=== PATIENT | female | born 1975 | race Caucasian/White ===

== ENCOUNTER 2016-10-09 03:59 | Inpatient (IN) | payer SELFPAY ==
[2016-10-09] MEDS ORDERED: NO HOME MEDICATION XX (04:10)
[2016-10-09 04:48] LABS: BASO % 0.4 % (0-2); EOS % 4.7 % (0-7); EOSINOPHIL ABSOLUTE COUNT 0.5 tho/cmm (0.0-0.7); HCT-HEMATOCRIT 28.7 % (34.0-49.0); HGB-HEMOGLOBIN 9.2 gm/dl (12.0-15.5); IMMATURE GRANULOCYTES ABSOLUTE 0.02 tho/cmm (0-0.03); IMMATURE GRANULOCYTES PERCENT 0.2 % (0-0.3); LYMPH % 22.8 % (20-45); LYMPH ABSOLUTE COUNT 2.3 tho/cmm (0.8-4.5); MCH (MEAN CORPUSCULAR HGB) 23.8 pg (28.0-32.0); MCHC MEAN CORPUSCULAR HGB CONC 32.1 % (32.0-36.0); MCV (MEAN CELL VOLUME) 74.4 fl (82.0-96.0); MEAN PLATELET VOLUME 9.4 cmc (9.4-12.4); MONO % 6.6 % (0-12); MONOCYTE ABSOLUTE COUNT 0.7 tho/cmm (0.0-1.2); NEUTROPHIL ABSOLUTE COUNT 6.6 tho/cmm (1.6-8.0); NEUTROPHIL-AUTOMATED 6.6 tho/cmm (1.6-8.0); NEUTROPHILS % 65.3 % (40-80); PLATELET COUNT 444 tho/cmm (150-450); RED BLOOD COUNT 3.86 mil/cmm (4.00-5.20); RED CELL DISTRIBUTION WIDTH 22.7 % (12.4-16.4); WHITE BLOOD COUNT 10.1 tho/cmm (4.0-10.0)
[2016-10-09 04:56] LABS: PREGNANCY-SERUM NEGATIVE (NEGATIVE)
[2016-10-09 05:11] LABS: URINE BILIRUBIN NEGATIVE (NEG); URINE BLOOD LARGE (NEG); URINE GLUCOSE (UA) MODERATE (NEG); URINE KETONE NEGATIVE (NEG); URINE LEUKOCYTE ESTERASE NEGATIVE (NEG); URINE NITRITE NEGATIVE (NEG); URINE PROTEIN LARGE (NEG)
[2016-10-09 05:22] LABS: URINE APPEARANCE HAZY; URINE COLOR YELLOW
[2016-10-09 05:24] LABS: URINE BACTERIA 2+; URINE WBC RARE /[HPF] (0-5)
[2016-10-09 05:27] LABS: ALB/GLOB RATIO 0.2 (0.8-2.0); ALBUMIN 1.2 g/dl (3.5-5.0); ALKALINE PHOSPHATASE 111 U/L (33-138); ALT/SGPT 18 U/L (12-78); AST/SGOT 23 U/L (10-40); BILIRUBIN,TOTAL 0.1 mg/dl (0-1.5); BLOOD UREA NITROGEN 20 mg/dl (6-24); CALCIUM 7.9 mg/dl (8.5-10.5); CARBON DIOXIDE-VENOUS 19 mmol/L (22-32); CHLORIDE 111 mmol/l (96-110); CREATININE 1.83 mg/dl (0.50-1.10); GLUCOSE 121 mg/dL (70-110); MAGNESIUM 2.2 mg/dl (1.8-2.6); SODIUM 143 mmol/L (135-145); eGFR VALUE FOR BLACK 39 mL/Min
[2016-10-09 05:57] LABS: ANION GAP 16 mmol/L (0-20); POTASSIUM 2.5 mmol/L (3.7-5.1)
[2016-10-09 10:52] LABS: PROTHROMBIN TIME 11.2 SECONDS (9.0-13.6)
[2016-10-09 11:02] LABS: IRON 16 ug/dl (37-170); IRON BINDING CAPACITY 119 ug/dl (250-450)
[2016-10-09 11:06] LABS: FERRITIN 24 ng/ml (8-250); MAGNESIUM 2.2 mg/dl (1.8-2.6); PHOSPHOROUS 4.7 mg/dl (2.5-4.9)
[2016-10-09 12:33] LABS: PROCALCITONIN 0.18 ng/ml (0.05-0.09)
[2016-10-09 12:55] LABS: ESR-ERYTHROCYTE SED RATE >140 mm/hr (0-20)
[2016-10-10 06:20] LABS: BASO % 0.4 % (0-2); EOS % 6.3 % (0-7); EOSINOPHIL ABSOLUTE COUNT 0.5 tho/cmm (0.0-0.7); HGB-HEMOGLOBIN 7.7 gm/dl (12.0-15.5); IMMATURE GRANULOCYTES ABSOLUTE 0.01 tho/cmm (0-0.03); IMMATURE GRANULOCYTES PERCENT 0.1 % (0-0.3); LYMPH % 35.2 % (20-45); LYMPH ABSOLUTE COUNT 2.9 tho/cmm (0.8-4.5); MCH (MEAN CORPUSCULAR HGB) 23.2 pg (28.0-32.0); MCHC MEAN CORPUSCULAR HGB CONC 30.8 % (32.0-36.0); MCV (MEAN CELL VOLUME) 75.3 fl (82.0-96.0); MEAN PLATELET VOLUME 9.3 cmc (9.4-12.4); MONO % 6.5 % (0-12); MONOCYTE ABSOLUTE COUNT 0.5 tho/cmm (0.0-1.2); NEUTROPHIL ABSOLUTE COUNT 4.3 tho/cmm (1.6-8.0); NEUTROPHIL-AUTOMATED 4.3 tho/cmm (1.6-8.0); NEUTROPHILS % 51.5 % (40-80); PLATELET COUNT 406 tho/cmm (150-450); RED BLOOD COUNT 3.32 mil/cmm (4.00-5.20); RED CELL DISTRIBUTION WIDTH 23.1 % (12.4-16.4); WHITE BLOOD COUNT 8.3 tho/cmm (4.0-10.0)
[2016-10-10 06:42] LABS: ALB/GLOB RATIO 0.2 (0.8-2.0); ALBUMIN 0.9 g/dl (3.5-5.0); ALKALINE PHOSPHATASE 85 U/L (33-138); ALT/SGPT 13 U/L (12-78); ANION GAP 16 mmol/L (0-20); AST/SGOT 22 U/L (10-40); BLOOD UREA NITROGEN 21 mg/dl (6-24); CALCIUM 7.7 mg/dl (8.5-10.5); CARBON DIOXIDE-VENOUS 18 mmol/L (22-32); CHLORIDE 117 mmol/l (96-110); CHOLESTEROL 217 mg/dl (120-200); CREATININE 2.02 mg/dl (0.50-1.10); GLUCOSE 90 mg/dL (70-110); HDL CHOLESTEROL 68 mg/dl (40-60); LDL CHOLESTEROL 126 mg/dl (0-99); POTASSIUM 3.9 mmol/L (3.7-5.1); SODIUM 147 mmol/L (135-145); TRIGLYCERIDES 117 mg/dl (<149); VLDL 23 mg/dl (0-30); eGFR VALUE FOR BLACK 34 mL/Min
[2016-10-10 06:49] LABS: BILIRUBIN,TOTAL <0.1 mg/dl (0-1.5)
[2016-10-10 16:24] LABS: URINE PRT/CR RATIO 21.79 Ratio (0.0-0.20); URINE TOTAL PROTEIN-RANDOM 1024.4 mg/dl (<11.8)
[2016-10-10 18:19] LABS: BODY FLUID APPEARANCE HAZY (CLEAR); BODY FLUID COLOR YELLOW (COLORLESS); BODY FLUID TYPE RIGHT PLEURAL; BODY FLUID VOLUME 1700 ml
[2016-10-10 18:34] LABS: BODY FLUID RBC COUNT <1000 cmm (0); BODY FLUID WBC COUNT 366 cmm
[2016-10-10 18:51] LABS: BODY FLUID LYMPHOCYTES 63 %; BODY FLUID MACROPHAGES 20 %; BODY FLUID NEUTROPHILS 17 %
[2016-10-11 03:37] LABS: BASO % 0.3 % (0-2); EOS % 4.3 % (0-7); EOSINOPHIL ABSOLUTE COUNT 0.5 tho/cmm (0.0-0.7); HCT-HEMATOCRIT 24.1 % (34.0-49.0); HGB-HEMOGLOBIN 7.5 gm/dl (12.0-15.5); IMMATURE GRANULOCYTES ABSOLUTE 0.02 tho/cmm (0-0.03); IMMATURE GRANULOCYTES PERCENT 0.2 % (0-0.3); LYMPH % 24.5 % (20-45); LYMPH ABSOLUTE COUNT 2.6 tho/cmm (0.8-4.5); MCH (MEAN CORPUSCULAR HGB) 23.4 pg (28.0-32.0); MCHC MEAN CORPUSCULAR HGB CONC 31.1 % (32.0-36.0); MCV (MEAN CELL VOLUME) 75.1 fl (82.0-96.0); MEAN PLATELET VOLUME 9.6 cmc (9.4-12.4); MONO % 4.4 % (0-12); MONOCYTE ABSOLUTE COUNT 0.5 tho/cmm (0.0-1.2); NEUTROPHILS % 66.3 % (40-80); PLATELET COUNT 433 tho/cmm (150-450); RED BLOOD COUNT 3.21 mil/cmm (4.00-5.20); RED CELL DISTRIBUTION WIDTH 23.2 % (12.4-16.4); WHITE BLOOD COUNT 10.6 tho/cmm (4.0-10.0)
[2016-10-11 03:40] LABS: ANION GAP 16 mmol/L (0-20); BLOOD UREA NITROGEN 20 mg/dl (6-24); CALCIUM 7.8 mg/dl (8.5-10.5); CARBON DIOXIDE-VENOUS 16 mmol/L (22-32); CHLORIDE 118 mmol/l (96-110); FERRITIN 23 ng/ml (8-250); GLUCOSE 92 mg/dL (70-110); POTASSIUM 3.6 mmol/L (3.7-5.1); SODIUM 146 mmol/L (135-145); eGFR VALUE FOR BLACK 37 mL/Min
[2016-10-11 04:03] LABS: IRON 26 ug/dl (37-170); IRON BINDING CAPACITY 124 ug/dl (250-450)
[2016-10-12 05:37] LABS: ALBUMIN 1.3 g/dl (3.5-5.0); ANION GAP 15 mmol/L (0-20); BLOOD UREA NITROGEN 19 mg/dl (6-24); CALCIUM 7.8 mg/dl (8.5-10.5); CARBON DIOXIDE-VENOUS 17 mmol/L (22-32); CHLORIDE 119 mmol/l (96-110); CREATININE 1.88 mg/dl (0.50-1.10); GLUCOSE 100 mg/dL (70-110); MAGNESIUM 1.8 mg/dl (1.8-2.6); PHOSPHOROUS 4.2 mg/dl (2.5-4.9); POTASSIUM 3.7 mmol/L (3.7-5.1); SODIUM 147 mmol/L (135-145); eGFR VALUE FOR BLACK 37 mL/Min
[2016-10-12 11:13] LABS: BASO % 0.5 % (0-2); EOS % 6.8 % (0-7); EOSINOPHIL ABSOLUTE COUNT 0.6 tho/cmm (0.0-0.7); IMMATURE GRANULOCYTES ABSOLUTE 0.01 tho/cmm (0-0.03); IMMATURE GRANULOCYTES PERCENT 0.1 % (0-0.3); LYMPH % 31.2 % (20-45); LYMPH ABSOLUTE COUNT 2.6 tho/cmm (0.8-4.5); MCH (MEAN CORPUSCULAR HGB) 23.5 pg (28.0-32.0); MCV (MEAN CELL VOLUME) 75.8 fl (82.0-96.0); MEAN PLATELET VOLUME 9.3 cmc (9.4-12.4); MONOCYTE ABSOLUTE COUNT 0.3 tho/cmm (0.0-1.2); NEUTROPHIL ABSOLUTE COUNT 4.8 tho/cmm (1.6-8.0); NEUTROPHIL-AUTOMATED 4.8 tho/cmm (1.6-8.0); NEUTROPHILS % 57.4 % (40-80); PLATELET COUNT 411 tho/cmm (150-450); RED BLOOD COUNT 2.98 mil/cmm (4.00-5.20); RED CELL DISTRIBUTION WIDTH 23.1 % (12.4-16.4); WHITE BLOOD COUNT 8.4 tho/cmm (4.0-10.0)
[2016-10-12 11:14] LABS: HCT-HEMATOCRIT 22.6 % (34.0-49.0)
--- NOTE | 2016-10-12 12:17 | NUR ---
PATIENT NOTED TO BE VERY PALE/FLUSHED. SHORT OF BREATH AND COMPLAINING OF NAUSEA/VOMITING. ZOFRAN GIVEN. CLUBBING NOTED TO NAILS. PATIENT RECEIVING IRON AND PROCRIT IV AT THIS TIME. WILL CONTINUE TO MONITOR.
[2016-10-13 05:03] LABS: HGB-HEMOGLOBIN 7.3 gm/dl (12.0-15.5); IMMATURE GRANULOCYTES ABSOLUTE 0.02 tho/cmm (0-0.03); IMMATURE GRANULOCYTES PERCENT 0.3 % (0-0.3); LYMPH % 14.4 % (20-45); MCH (MEAN CORPUSCULAR HGB) 23.9 pg (28.0-32.0); MCV (MEAN CELL VOLUME) 75.8 fl (82.0-96.0); MEAN PLATELET VOLUME 9.8 cmc (9.4-12.4); MONO % 0.6 % (0-12); NEUTROPHIL ABSOLUTE COUNT 5.7 tho/cmm (1.6-8.0); NEUTROPHIL-AUTOMATED 5.7 tho/cmm (1.6-8.0); NEUTROPHILS % 84.7 % (40-80); PLATELET COUNT 407 tho/cmm (150-450); RED BLOOD COUNT 3.06 mil/cmm (4.00-5.20); RED CELL DISTRIBUTION WIDTH 23.6 % (12.4-16.4); WHITE BLOOD COUNT 6.7 tho/cmm (4.0-10.0)
[2016-10-13 05:11] LABS: HCT-HEMATOCRIT 23.2 % (34.0-49.0); MCHC MEAN CORPUSCULAR HGB CONC 31.5 % (32.0-36.0)
[2016-10-13 05:14] LABS: ALBUMIN 1.7 g/dl (3.5-5.0); BLOOD UREA NITROGEN 19 mg/dl (6-24); CALCIUM 7.7 mg/dl (8.5-10.5); CARBON DIOXIDE-VENOUS 17 mmol/L (22-32); CHLORIDE 115 mmol/l (96-110); CREATININE 1.94 mg/dl (0.50-1.10); PHOSPHOROUS 3.8 mg/dl (2.5-4.9); SODIUM 142 mmol/L (135-145); eGFR VALUE FOR BLACK 36 mL/Min
[2016-10-13 05:18] LABS: ANION GAP 15 mmol/L (0-20); GLUCOSE 151 mg/dL (70-110)
[2016-10-13 05:19] LABS: MAGNESIUM 1.7 mg/dl (1.8-2.6); POTASSIUM 5.1 mmol/L (3.7-5.1)
[2016-10-14 05:30] LABS: BASO % 0.1 % (0-2); HGB-HEMOGLOBIN 6.6 gm/dl (12.0-15.5); IMMATURE GRANULOCYTES ABSOLUTE 0.11 tho/cmm (0-0.03); IMMATURE GRANULOCYTES PERCENT 0.8 % (0-0.3); LYMPH % 11.4 % (20-45); LYMPH ABSOLUTE COUNT 1.6 tho/cmm (0.8-4.5); MCH (MEAN CORPUSCULAR HGB) 23.7 pg (28.0-32.0); MCV (MEAN CELL VOLUME) 76.3 fl (82.0-96.0); MEAN PLATELET VOLUME 10.2 cmc (9.4-12.4); MONO % 1.3 % (0-12); MONOCYTE ABSOLUTE COUNT 0.2 tho/cmm (0.0-1.2); NEUTROPHILS % 86.4 % (40-80); PLATELET COUNT 372 tho/cmm (150-450); RED BLOOD COUNT 2.78 mil/cmm (4.00-5.20); RED CELL DISTRIBUTION WIDTH 23.7 % (12.4-16.4)
[2016-10-14 05:42] LABS: HCT-HEMATOCRIT 21.2 % (34.0-49.0); MCHC MEAN CORPUSCULAR HGB CONC 31.1 % (32.0-36.0); WHITE BLOOD COUNT 13.9 tho/cmm (4.0-10.0)
[2016-10-14 06:03] LABS: ALBUMIN 2.2 g/dl (3.5-5.0); ANION GAP 15 mmol/L (0-20); BLOOD UREA NITROGEN 23 mg/dl (6-24); CALCIUM 7.4 mg/dl (8.5-10.5); CARBON DIOXIDE-VENOUS 20 mmol/L (22-32); CHLORIDE 113 mmol/l (96-110); GLUCOSE 148 mg/dL (70-110); SODIUM 142 mmol/L (135-145)
[2016-10-14 06:04] LABS: CREATININE 1.85 mg/dl (0.50-1.10); PHOSPHOROUS 4.2 mg/dl (2.5-4.9); eGFR VALUE FOR BLACK 38 mL/Min
[2016-10-14 06:18] LABS: POTASSIUM 5.6 mmol/L (3.7-5.1)
[2016-10-15 05:33] LABS: ALBUMIN 2.4 g/dl (3.5-5.0); ANION GAP 14 mmol/L (0-20); BLOOD UREA NITROGEN 30 mg/dl (6-24); CARBON DIOXIDE-VENOUS 27 mmol/L (22-32); CHLORIDE 106 mmol/l (96-110); CREATININE 1.77 mg/dl (0.50-1.10); GLUCOSE 176 mg/dL (70-110); MAGNESIUM 1.6 mg/dl (1.8-2.6); PHOSPHOROUS 2.1 mg/dl (2.5-4.9); SODIUM 144 mmol/L (135-145); eGFR VALUE FOR BLACK 40 mL/Min
[2016-10-15 05:38] LABS: POTASSIUM 2.6 mmol/L (3.7-5.1)
[2016-10-15 05:51] LABS: HGB-HEMOGLOBIN 7.3 gm/dl (12.0-15.5); MCH (MEAN CORPUSCULAR HGB) 23.9 pg (28.0-32.0); MCV (MEAN CELL VOLUME) 76.1 fl (82.0-96.0); MEAN PLATELET VOLUME 10.4 cmc (9.4-12.4); NEUTROPHIL-AUTOMATED 12.4 tho/cmm (1.6-8.0); PLATELET COUNT 456 tho/cmm (150-450); RED BLOOD COUNT 3.05 mil/cmm (4.00-5.20); WHITE BLOOD COUNT 14.9 tho/cmm (4.0-10.0)
[2016-10-15 05:58] LABS: BASO % 0.1 % (0-2); HCT-HEMATOCRIT 23.2 % (34.0-49.0); IMMATURE GRANULOCYTES ABSOLUTE 0.17 tho/cmm (0-0.03); IMMATURE GRANULOCYTES PERCENT 1.1 % (0-0.3); LYMPH % 13.4 % (20-45); MCHC MEAN CORPUSCULAR HGB CONC 31.5 % (32.0-36.0); MONO % 2.2 % (0-12); MONOCYTE ABSOLUTE COUNT 0.3 tho/cmm (0.0-1.2); NEUTROPHIL ABSOLUTE COUNT 12.4 tho/cmm (1.6-8.0); NEUTROPHILS % 83.2 % (40-80)
[2016-10-16 03:21] LABS: ALBUMIN 2.1 g/dl (3.5-5.0); ANION GAP 13 mmol/L (0-20); BLOOD UREA NITROGEN 22 mg/dl (6-24); CARBON DIOXIDE-VENOUS 25 mmol/L (22-32); CHLORIDE 108 mmol/l (96-110); CREATININE 1.11 mg/dl (0.50-1.10); GLUCOSE 174 mg/dL (70-110); MAGNESIUM 1.8 mg/dl (1.8-2.6); PHOSPHOROUS 1.3 mg/dl (2.5-4.9); POTASSIUM 3.5 mmol/L (3.7-5.1); SODIUM 142 mmol/L (135-145); eGFR VALUE FOR BLACK 70 mL/Min
[2016-10-16 03:26] LABS: CALCIUM 6.4 mg/dl (8.5-10.5)
[2016-10-17 06:04] LABS: HGB-HEMOGLOBIN 8.6 gm/dl (12.0-15.5); MCH (MEAN CORPUSCULAR HGB) 24.2 pg (28.0-32.0); MCHC MEAN CORPUSCULAR HGB CONC 30.7 % (32.0-36.0); MCV (MEAN CELL VOLUME) 78.9 fl (82.0-96.0); NEUTROPHIL-AUTOMATED 7.2 tho/cmm (1.6-8.0); PLATELET COUNT 448 tho/cmm (150-450); RED BLOOD COUNT 3.55 mil/cmm (4.00-5.20); RED CELL DISTRIBUTION WIDTH 24.6 % (12.4-16.4); WHITE BLOOD COUNT 12.8 tho/cmm (4.0-10.0)
[2016-10-17 06:14] LABS: ALBUMIN 2.4 g/dl (3.5-5.0); ANION GAP 15 mmol/L (0-20); BASO % 0.2 % (0-2); BLOOD UREA NITROGEN 19 mg/dl (6-24); CALCIUM 6.7 mg/dl (8.5-10.5); CARBON DIOXIDE-VENOUS 27 mmol/L (22-32); CHLORIDE 100 mmol/l (96-110); CREATININE 1.08 mg/dl (0.50-1.10); EOS % 0.7 % (0-7); EOSINOPHIL ABSOLUTE COUNT 0.1 tho/cmm (0.0-0.7); GLUCOSE 154 mg/dL (70-110); IMMATURE GRANULOCYTES ABSOLUTE 0.23 tho/cmm (0-0.03); IMMATURE GRANULOCYTES PERCENT 1.8 % (0-0.3); LYMPH % 35.7 % (20-45); LYMPH ABSOLUTE COUNT 4.6 tho/cmm (0.8-4.5); MAGNESIUM 1.4 mg/dl (1.8-2.6); MONO % 5.5 % (0-12); MONOCYTE ABSOLUTE COUNT 0.7 tho/cmm (0.0-1.2); NEUTROPHIL ABSOLUTE COUNT 7.2 tho/cmm (1.6-8.0); NEUTROPHILS % 56.1 % (40-80); PHOSPHOROUS 1.9 mg/dl (2.5-4.9); SODIUM 138 mmol/L (135-145); eGFR VALUE FOR BLACK 73 mL/Min
[2016-10-17 06:20] LABS: POTASSIUM 3.8 mmol/L (3.7-5.1)
[2016-10-17 21:34] LABS: URINE PRT/CR RATIO 7.99 Ratio (0.0-0.20); URINE TOTAL PROTEIN-RANDOM 175.8 mg/dl (<11.8)
[2016-10-18 06:23] LABS: ALBUMIN 2.7 g/dl (3.5-5.0); ANION GAP 15 mmol/L (0-20); BLOOD UREA NITROGEN 23 mg/dl (6-24); CALCIUM 7.2 mg/dl (8.5-10.5); CARBON DIOXIDE-VENOUS 24 mmol/L (22-32); CHLORIDE 104 mmol/l (96-110); CREATININE 1.11 mg/dl (0.50-1.10); GLUCOSE 160 mg/dL (70-110); MAGNESIUM 1.9 mg/dl (1.8-2.6); PHOSPHOROUS 2.6 mg/dl (2.5-4.9); POTASSIUM 4.1 mmol/L (3.7-5.1); SODIUM 139 mmol/L (135-145); eGFR VALUE FOR BLACK 70 mL/Min
[2016-10-18] MEDS ORDERED: TOPROL XL25 M1 PO (13:24)
[2016-10-18] MEDS ORDERED: DEMADEX20 M1 PO (13:24)
[2016-10-18] MEDS ORDERED: OS-CAL 500+D31 EAC1 PO (13:25)
[2016-10-18] MEDS ORDERED: DELTASONE20 MG PO (13:25)
[2016-10-18] MEDS ORDERED: COZAAR50 M1 PO (13:26)
--- NOTE | 2016-10-18 13:28 | NUR ---
PT BP SYSTOLIC HIGH 80'S LOW 90'S DR HARRISON NOTIFIED AND STILL OK WITH DC RENAL HAS ADJUSTED A FEW MEDS BASED ON THIS.
== END 2016-10-18 14:40 | DRG 682 ==
LOC: EDMED 03:59 → EMR2 06:45 → PCUA 08:15
PROVIDERS: Emergency Medicine; Internal Medicine; Internal Medicine Cardiovascular Disease; Internal Medicine Nephrology; Internal Medicine Pulmonary Disease; Physician Assistant; Registered Nurse; ADMIT Hospitalist
PROC: 05H633Z Insertion of Infusion Device into Left Subclavian Vein, Percutaneous Approach (ICD-10-PCS; 2016-10-09)
PROC: 0W993ZZ Drainage of Right Pleural Cavity, Percutaneous Approach (ICD-10-PCS; 2016-10-10)
PROC: 0TB13ZX Excision of Left Kidney, Percutaneous Approach, Diagnostic (ICD-10-PCS; principal; 2016-10-12)
DX: N17.9 Acute kidney failure, unspecified (principal); K65.8 Other peritonitis; E43 Unspecified severe protein-calorie malnutrition; J90 Pleural effusion, not elsewhere classified; I12.9 Hypertensive chronic kidney disease with stage 1 through stage 4 chronic kidney disease, or unspecified chronic kidney disease; D50.9 Iron deficiency anemia, unspecified; K90.0 Celiac disease; F17.220 Nicotine dependence, chewing tobacco, uncomplicated; R79.89 Other specified abnormal findings of blood chemistry; E88.09 Other disorders of plasma-protein metabolism, not elsewhere classified; E87.6 Hypokalemia; N18.9 Chronic kidney disease, unspecified; E83.42 Hypomagnesemia; F15.90 Other stimulant use, unspecified, uncomplicated; F32.9 Major depressive disorder, single episode, unspecified; F41.9 Anxiety disorder, unspecified; I34.0 Nonrheumatic mitral (valve) insufficiency; M06.9 Rheumatoid arthritis, unspecified; J45.909 Unspecified asthma, uncomplicated; R06.00 Dyspnea, unspecified; R73.9 Hyperglycemia, unspecified; E03.9 Hypothyroidism, unspecified; E87.70 Fluid overload, unspecified; M19.90 Unspecified osteoarthritis, unspecified site; Z71.51 Drug abuse counseling and surveillance of drug abuser; R00.0 Tachycardia, unspecified; E87.5 Hyperkalemia; M71.20 Synovial cyst of popliteal space [Baker], unspecified knee
CPT/HCPCS: A9500; C1751; C9113; G8978-GP-CJ; G8979-GP-CL; J0885; J1650; J1756; J1940; J2250; J2405; J2785; J2930; J3010; J3475; J3480; J7050; J7512; P9047